=== PATIENT | female | born 1955 | race Caucasian/White ===

== ENCOUNTER → 2025-04-02 | Day surgery (SDC) | payer MEDICAID ==
[~2025-04-02] VITALS: Ht 152.4 cm; Wt 69.9 kg
[~2025-04-02] MED LIST: ATOR10TA69 PO; BUPIVACAINE HCL/PF 0.5% (5MG/ML) 10ML ONE; CHOL500010 PO; FENTANYL CITRATE/PF 50MCG/ML 2ML VIAL ONE; GLYCOPYRROLATE 0.2 MG/ML 2ML VIAL IV PRN; HYDRALAZINE 20MG/ML VIAL IV PRN; HYDROMORPHONE HCL/PF 1MG/ML INJ IV PRN; HYDROMORPHONE HCL/PF 1MG/ML INJ ONE; LABETALOL 5MG/ML 4ML INJ IV PRN; LACTATED RINGERS 1,000 ML IV SCH; PHENYLEPHRINE HCL 10MG/ML 1ML IV ONE; PROPOFOL 200MG/20ML VIAL IV ONE; RIBO25TA PO; ROCURONIUM BROMIDE 10MG/ML VIAL 5ML IV ONE; SUGAMMADEX SODIUM 200MG/2ML VIAL IV ONE
[2025-04-02] MEDS: ONDANSETRON HCL 4MG/2ML INJ IV PRN (11:44)
[2025-04-02 11:54] VITALS: BP 160/54; PULSE 78; RESP 19
[2025-04-02] MEDS: HYDROMORPHONE HCL/PF 1MG/ML INJ IV PRN (11:54)
[2025-04-02] MEDS: DEXAMETHASONE 4MG/ML 1ML VIAL IV PRN (13:57)
== END | disposition home or self-care (01) ==
LOC: OR 07:34
PROVIDERS: ATTEND Surgery
DX: K80.10 Calculus of gallbladder with chronic cholecystitis without obstruction (principal); I10 Essential (primary) hypertension; J45.909 Unspecified asthma, uncomplicated; E78.2 Mixed hyperlipidemia; Z79.899 Other long term (current) drug therapy; Z98.890 Other specified postprocedural states
CPT/HCPCS: 47562; 88304; J3010; J0665; J1100; J2405; J2371; J2704; J3490; J1171; A4606